=== PATIENT | male | born 1960 | race Caucasian/White ===

== ENCOUNTER 2019-04-22 11:05 | Emergency (ER) | payer MEDICARE, MEDICAID ==
--- NOTE | 2019-04-22 11:56 | EDM.PDOC ---
ED HPI GENERAL MEDICAL PROBLEM - General Chief Complaint: General Stated Complaint: Back pain; abnormal labs Time Seen by Provider: 04/22/19 11:20 Source of Information: Reports: Patient History Limitations: Reports: No Limitations - History of Present Illness INITIAL COMMENTS - FREE TEXT/NARRATIVE: Patient is a 58-year-old with known history of diabetes renal failure came in for evaluation not feeling well diarrhea mostly in the afternoon 24 times back pain at this time labs were drawn in [place] BUN was 65 g creatinine was 9.38 calcium was 7.8 sodium 134 potassium was 5.5 chloride 90 7 repeat creatinine was in the 9.3 range also at this time patient is alert oriented in no acute distress we are concerned because his creatinine is 9.38 I called [facility] is focal with Dr. Nuñez who accepted his transfer we will infuse 1 g IV of calcium and transfer him to [place]. Of interest his labs recently about 2 weeks ago and his creatinine was in the 3- 4 range I do not have the labs with me but his sister who is a director of cath lab told me. Onset: Gradual Duration: Day(s):, Getting Worse Location: Reports: Abdomen Severity: Severe Improves with: Reports: None Worsens with: Reports: None Associated Symptoms: Reports: Weakness, Other (Area) Back Pain Score (Numeric/FACES): 4 - Related Data Allergies Allergy/AdvReac Type Severity Reaction Status Date / Time daptomycin Allergy Rash Verified 04/22/19 11:28 midodrine [Midodrine] Allergy Cannot Verified 04/22/19 11:28 Remember povidone-iodine Allergy Redness Verified 04/22/19 11:28 [From Betadine] soap [From Betadine] Allergy Redness Verified 04/22/19 11:28 vancomycin Allergy Other Verified 04/22/19 11:28 vancomycin causes Red Man Allergy Other Uncoded 04/22/19 11:28 Syndrome Home Meds: Home Meds Calcitriol 0.25 mcg PO DAILY 12/12/14 [History] FLUoxetine HCl [Fluoxetine HCl] 20 mg pe PO DAILY 12/12/14 [History] Insulin Aspart [NovoLOG] 18 units SUBCUT TIDMEALS 12/12/14 [History] Insulin Glarg,Human.Rec.Analog [Lantus Solostar] 52 units SUBCUT BID 12/12/14 [ History] LORazepam 0.5 mg PO BEDTIME 12/12/14 [History] Metoprolol Tartrate [Lopressor] 100 mg PO BID 12/12/14 [History] Omeprazole 20 mg PO DAILY 12/12/14 [History] amLODIPine Besylate [Amlodipine Besylate] 10 mg PO DAILY 12/12/14 [History] Aspirin [Halfprin] 81 mg PO BRK 12/10/15 [History] Cholecalciferol (Vitamin D3) [Vitamin D3] 5,000 unit PO DAILY 04/22/19 [History] Fluticasone Propionate [Flovent HFA 110 MCG] 1 puff INH BID PRN 04/22/19 [ History] Furosemide [Lasix] 40 mg PO BID PRN 04/22/19 [History] Warfarin [Coumadin] 5 mg PO DAILY 04/22/19 [History] atorvaSTATin Calcium [Lipitor] 40 mg PO DAILY 04/22/19 [History] hydrALAZINE [Apresoline] 50 mg PO BID 04/22/19 [History] Past Medical History HEENT History: Reports: Cataract, Impaired Vision, Retinal Detachment Cardiovascular History: Reports: Afib, High Cholesterol, Hypertension, PVD Respiratory History: Reports: None. Denies: COPD, PE, Sleep Apnea, TB Gastrointestinal History: Reports: Gastritis, GERD. Denies: Cholelithiasis, Chronic Constipation, Chronic Diarrhea, Fecal Incontinence, GI Bleed, Hepatitis , Inflammatory Bowel Disease, Pancreatitis, PUD Genitourinary History: Reports: Chronic Renal Insuffiency, Dialysis, Diabetic Nephropathy Musculoskeletal History: Reports: Back Pain, Chronic, Fracture, Osteoarthritis Neurological History: Reports: Concussion (1970), CVA (previous possible dysarthria on 01/12/15 and CVA on 07/20/[address] scans of the head as below but no subsequent MRIs, etc.). Denies: Cerebral Aneurysms, Neuropathy, Diabetic, Neuropathy, Peripheral, Seizure, Vertigo Psychiatric History: Reports: Anxiety, Depression. Denies: Abuse, Victim of, ADD, ADHD, Psych Hospitalization(s), Suicide Attempt, Suicidal Ideation Endocrine/Metabolic History: Reports: Diabetes, Type I, Obesity/BMI 30+, Vitamin D Deficiency Hematologic History: Reports: Anemia, B12 Deficiency, Iron Deficiency Immunologic History: Reports: None. Denies: AIDS, HIV, SLE Oncologic (Cancer) History: Reports: None Dermatologic History: Reports: None. Denies: Eczema, Psoriasis - Infectious Disease History Infectious Disease History: Reports: Chicken Pox, MRSA - Past Surgical History HEENT Surgical History: Reports: Cataract Surgery, Detached Retina, Eye Surgery , Laser Surgery, Oral Surgery Cardiovascular Surgical History: Reports: Vascular Surgery Musculoskeletal Surgical History: Reports: Amputation, Other (See Below) - Past Imaging History Past Imaging History: Reports: Cardiac Echo, Venous Doppler Social & Family History - Living Situation & Occupation Living situation: Reports: Single, with Family Occupation: Disabled ED ROS GENERAL - Review of Systems Review Of Systems: See Below Constitutional: Reports: Weakness HEENT: Reports: No Symptoms, Other (Blurry vision secondary to hyperglycemia) Respiratory: Reports: No Symptoms Cardiovascular: Reports: No Symptoms Endocrine: Reports: High Glucose GI/Abdominal: Reports: Diarrhea : Reports: Other (Urine output has diminished tremendously) Musculoskeletal: Reports: Other (Bilateral lower extremity at the patient) Skin: Reports: No Symptoms Neurological: Reports: No Symptoms Psychiatric: Reports: No Symptoms Hematologic/Lymphatic: Reports: No Symptoms Immunologic: Reports: No Symptoms ED EXAM, GENERAL - Physical Exam Exam: See Below Exam Limited By: No Limitations Ears: Normal External Exam, Normal Canal, Hearing Grossly Normal, Normal TMs Ear Exam: Bilateral Ear: Auricle Normal, Canal Normal, TM normal Nose: Normal Inspection, Normal Mucosa, No Blood Throat/Mouth: Normal Inspection, Normal Lips, Normal Teeth, Normal Gums, Normal Oropharynx, Normal Voice, No Airway Compromise Head: Atraumatic, Normocephalic Neck: Normal Inspection, Supple, Non-Tender, Full Range of Motion Respiratory/Chest: No Respiratory Distress, Lungs Clear Cardiovascular: Regular Rate, Rhythm, No Murmur GI/Abdominal: Normal Bowel Sounds, Other (Diarrhea history) (Male) Exam: Deferred Rectal (Males) Exam: Deferred Back Exam: Paraspinal Tenderness, Vertebral Tenderness Extremities: Limited Range of Motion, Other (Patient(right stump with a posterior early in the summer hasn't been wearing the leg bilateral lower extremity amputation) Neurological: Alert, Oriented, CN II-XII Intact, Normal Cognition Psychiatric: Depressed Mood, Flat Affect Skin Exam: Warm, Dry, Intact Lymphatic: No Adenopathy Course - Vital Signs Last Recorded V/S: Last Vital Signs Temp 98.6 F 04/22/19 11:10 Pulse 80 04/22/19 11:10 Resp 19 04/22/19 11:10 BP 187/74 H 04/22/19 11:10 Pulse Ox 99 04/22/19 11:10 Departure - Departure Time of Disposition: 12:17 Disposition: DC/Tfer to [facility] Preliminary Cause of *Q: Multi System Organ Failure Condition: Poor, Serious Clinical Impression: Acute renal failure, Diabetes mellitus, Hypocalcemia - Discharge Information *PRESCRIPTION DRUG MONITORING PROGRAM REVIEWED*: No *COPY OF PRESCRIPTION DRUG MONITORING REPORT IN PATIENT RANDI: No Referrals: Mukund Bryan MD [Primary Care Provider] - Care Plan Goals: Patient will be treated for hypocalcemia 1-2 g of calcium gluconate IV we started normal saline at 75 ML's per hour and will transfer to [facility] Dr. Dodson. - Problem List & Annotations (1) Chronic hyperkalemia SNOMED Code(s): 37397413 Code(s): E87.5 - HYPERKALEMIA Status: Acute Annotation/Comment:: Start him on 1 g of calcium gluconate and normal saline at 75 ML's per hour (2) IDDM (insulin dependent diabetes mellitus) SNOMED Code(s): 42735333 Code(s): E11.9 - TYPE 2 DIABETES MELLITUS WITHOUT COMPLICATIONS; Z79.4 - TECHNICAL LEAD (CURRENT) USE OF INSULIN Status: Chronic Priority: Medium Annotation/Comment:: Insulin required type 2 diabetes patient is very noncompliant with diet (3) Hyperlipemia SNOMED Code(s): 99428384 Code(s): E78.5 - HYPERLIPIDEMIA, UNSPECIFIED Status: Acute Priority: Medium Annotation/Comment:: Current obesity with compliance with diet encouraged and update of his routine preventative healthcare also discussed Qualifiers: Hyperlipidemia type: unspecified Qualified Code(s): E78.5 - Hyperlipidemia , unspecified (4) Low back pain SNOMED Code(s): 844149442 Code(s): M54.5 - LOW BACK PAIN Status: Acute Priority: Medium Onset Date: 12/10/15 Annotation/Comment:: symptomatic relief Qualifiers: Chronicity: acute Back pain laterality: bilateral Sciatica presence: without sciatica Qualified Code(s): M54.5 - Low back pain - Problem List Review Problem List Initiated/Reviewed/Updated: Yes - Assessment/Plan Admission H&P: Please use this note as an admission H&P Plan: At this time we will treat his hypercalcemia with 1 g of IV calcium gluconate will start him on sodium chloride and transfer him to [facility] Dr. Chen
[2019-04-22] MEDS ORDERED: Calcium Gluconate 1 GM in Sodium Chloride 0.9% 100 ML IV ONE (12:00)
[2019-04-22] MEDS ORDERED: Sodium Chloride 0.9% 10 ML Syringe FLUSH PRN (12:23)
[2019-04-22] MEDS ORDERED: Sodium Chloride 0.9% 1,000 ML IV SCH (12:30)
[2019-04-22 19:34] VITALS: BP 196/80; PULSE 79
== END 2019-04-22 13:15 ==
LOC: LL.ED 11:05
DX: E10.22 Type 1 diabetes mellitus with diabetic chronic kidney disease (principal); I12.0 Hypertensive chronic kidney disease with stage 5 chronic kidney disease or end stage renal disease; N18.6 End stage renal disease; N17.9 Acute kidney failure, unspecified; E83.51 Hypocalcemia; E10.21 Type 1 diabetes mellitus with diabetic nephropathy; F41.9 Anxiety disorder, unspecified; F32.9 Major depressive disorder, single episode, unspecified; Z88.1 Allergy status to other antibiotic agents; Z88.8 Allergy status to other drugs, medicaments and biological substances; Z91.048 Other nonmedicinal substance allergy status; Z79.82 Long term (current) use of aspirin; Z79.899 Other long term (current) drug therapy; Z79.01 Long term (current) use of anticoagulants; Z99.2 Dependence on renal dialysis; Z86.73 Personal history of transient ischemic attack (TIA), and cerebral infarction without residual deficits
CPT/HCPCS: 96360; 96365; 99284-25; J0610; J7030; J7050

== ENCOUNTER 2020-04-08 10:05 | Emergency (ER) | payer MEDICARE, MEDICAID ==
[2020-04-08] MEDS ORDERED: cefTRIAXone 1 GM Vial IM ONE (10:22)
[2020-04-08 10:27] VITALS: BP 170/75; PULSE 87
--- NOTE | 2020-04-08 10:29 | EDM.PDOC ---
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 No fever Onset: Gradual Duration: Day(s): Location: Reports: Upper Extremity, Left Context: Reports: Trauma - Related Data Allergies Allergy/AdvReac Type Severity Reaction Status Date / Time daptomycin Allergy Rash Verified 04/08/20 10:12 povidone-iodine Allergy Redness Verified 04/08/20 10:12 [From Betadine] soap [From Betadine] Allergy Redness Verified 04/08/20 10:12 vancomycin Allergy Other Verified 04/08/20 10:12 vancomycin causes Red Man Allergy Other Uncoded 04/08/20 10:12 Syndrome Home Meds: Home Meds FLUoxetine HCl [Fluoxetine HCl] 20 mg pe PO DAILY 12/12/14 [History] Insulin Aspart [NovoLOG] 18 units SUBCUT TIDMEALS 12/12/14 [History] Insulin Glarg,Human.Rec.Analog [Lantus Solostar] 50 units SUBCUT BID 12/12/14 [History] LORazepam 1 mg PO BID 12/12/14 [History] Metoprolol Tartrate [Lopressor] 50 mg PO BID 12/12/14 [History] Omeprazole 20 mg PO ACBREAKFAST 12/12/14 [History] Aspirin [Halfprin] 81 mg PO DAILY 12/10/15 [History] Fluticasone Propionate [Flovent HFA 110 MCG] 1 puff INH BID PRN 04/22/19 [History] Furosemide [Lasix] 40 mg PO BID PRN 04/22/19 [History] Warfarin [Coumadin] 5 mg PO SUTUTHSA 04/22/19 [History] atorvaSTATin Calcium [Lipitor] 40 mg PO DAILY 04/22/19 [History] Warfarin [Coumadin] 7.5 mg PO MOWEFR 04/08/20 [History] Past Medical History HEENT History: Reports: Cataract, Impaired Vision, Retinal Detachment Cardiovascular History: Reports: Afib, High Cholesterol, Hypertension, PVD Respiratory History: Reports: None Gastrointestinal History: Reports: Gastritis, GERD Genitourinary History: Reports: Chronic Renal Insuffiency, Dialysis, Diabetic Nephropathy Musculoskeletal History: Reports: Back Pain, Chronic, Fracture, Osteoarthritis Neurological History: Reports: Concussion, CVA Psychiatric History: Reports: Anxiety, Depression Endocrine/Metabolic History: Reports: Diabetes, Type I, Obesity/BMI 30+, Vitamin D Deficiency Hematologic History: Reports: Anemia, B12 Deficiency, Iron Deficiency Immunologic History: Reports: None Oncologic (Cancer) History: Reports: None Dermatologic History: Reports: None - Infectious Disease History Infectious Disease History: Reports: Chicken Pox, MRSA - Past Surgical History Head Surgeries/Procedures: Reports: None HEENT Surgical History: Reports: Cataract Surgery, Detached Retina, Eye Surgery, Laser Surgery, Oral Surgery Cardiovascular Surgical History: Reports: Vascular Surgery Musculoskeletal Surgical History: Reports: Amputation, Other (See Below) - Past Imaging History Past Imaging History: Reports: Cardiac Echo, Venous Doppler Social & Family History - Living Situation & Occupation Living situation: Reports: Single, with Family Occupation: Disabled ED ROS GENERAL - Review of Systems Review Of Systems: See Below Skin: Reports: Change in Color ED EXAM, SKIN/RASH Exam: See Below Exam Limited By: No Limitations Skin: Other (Tip of left thumb with 1 cm burn area Faint erythema on thumb and hand No open areas Slightly warm to touch) Course - Orders/Labs/Meds Meds: Medications Discontinued Medications Generic Name Dose Route Start Last Admin Trade Name Freq PRN Reason Stop Dose Admin Ceftriaxone Sodium 1 gm 04/08/20 10:22 Rocephin IM 04/08/20 10:23 ONETIME ONE - Re-Assessments/Exams Free Text/Narrative Re-Assessment/Exam: 04/08/20 10:27 Pt given Rocephin 1 gm IM and Rx for Cipro 500 mg a day after dialysis Departure - Departure Time of Disposition: 10:30 Disposition: Home, Self-Care 01 Clinical Impression: Burn Cellulitis Qualifiers: Site of cellulitis: extremity Site of cellulitis of extremity: upper extremity Laterality: left Qualified Code(s): L03.114 - Cellulitis of left upper limb - Discharge Information *PRESCRIPTION DRUG MONITORING PROGRAM REVIEWED*: Not Applicable *COPY OF PRESCRIPTION DRUG MONITORING REPORT IN PATIENT RANDI: Not Applicable Instructions: Cellulitis, Adult Referrals: Claudia Andrews NP [Primary Care Provider] - Additional Instructions: Follow up in clinic in 24 to 48 hours
== END 2020-04-08 10:55 | disposition home or self-care (01) ==
LOC: LL.ED 10:05
DX: T23.112A Burn of first degree of left thumb (nail), initial encounter (principal); L03.114 Cellulitis of left upper limb; I48.91 Unspecified atrial fibrillation; E78.00 Pure hypercholesterolemia, unspecified; E10.51 Type 1 diabetes mellitus with diabetic peripheral angiopathy without gangrene; E66.9 Obesity, unspecified; K21.9 Gastro-esophageal reflux disease without esophagitis; I12.9 Hypertensive chronic kidney disease with stage 1 through stage 4 chronic kidney disease, or unspecified chronic kidney disease; N18.9 Chronic kidney disease, unspecified; E10.21 Type 1 diabetes mellitus with diabetic nephropathy; F41.9 Anxiety disorder, unspecified; F32.9 Major depressive disorder, single episode, unspecified; M19.90 Unspecified osteoarthritis, unspecified site; Z79.82 Long term (current) use of aspirin; Z86.73 Personal history of transient ischemic attack (TIA), and cerebral infarction without residual deficits; Z79.01 Long term (current) use of anticoagulants; Z79.899 Other long term (current) drug therapy; Z88.1 Allergy status to other antibiotic agents; Z91.048 Other nonmedicinal substance allergy status
CPT/HCPCS: 96372; 99283; J0696; J2001

== ENCOUNTER 2020-05-31 17:08 | Emergency (ER) | payer MEDICARE, MEDICAID ==
[2020-05-31] MEDS ORDERED: Sodium Chloride 0.9% 10 ML Syringe FLUSH PRN (17:20)
[2020-05-31 18:09] LABS: PTT,PARTIAL THROMBOPLSTIN TIME 43.6 SEC (24.5-32.8)
[2020-05-31 18:21] LABS: CHLORIDE,CL 99 mmol/L (98-107); SODIUM,NA 135 mmol/L (136-145)
[2020-05-31 18:31] VITALS: BP 154/74; PULSE 69
--- NOTE | 2020-05-31 18:48 | EDM.PDOC ---
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 [OM.PC] Urgent Peripheral IV Insertion Adult [OM.PC] Stat 05/31/20 18:17 EKG Documentation Completion [RC] ASDIRECTED Assessment:: As above Plan: As above. Extensive precautions were given to the patient and his sister, who are in agreement with the treatment plan. See Patient Instructions for further treatment and plan.
== END 2020-05-31 19:10 | disposition home or self-care (01) ==
LOC: LL.ED 17:08
DX: I13.0 Hypertensive heart and chronic kidney disease with heart failure and stage 1 through stage 4 chronic kidney disease, or unspecified chronic kidney disease (principal); I50.9 Heart failure, unspecified; N18.9 Chronic kidney disease, unspecified; M15.0 Primary generalized (osteo)arthritis; E10.21 Type 1 diabetes mellitus with diabetic nephropathy; Z71.6 Tobacco abuse counseling; F17.210 Nicotine dependence, cigarettes, uncomplicated; I45.10 Unspecified right bundle-branch block; I49.1 Atrial premature depolarization; E88.09 Other disorders of plasma-protein metabolism, not elsewhere classified; E87.1 Hypo-osmolality and hyponatremia; E10.51 Type 1 diabetes mellitus with diabetic peripheral angiopathy without gangrene; K21.9 Gastro-esophageal reflux disease without esophagitis; I48.91 Unspecified atrial fibrillation; E78.00 Pure hypercholesterolemia, unspecified; F41.9 Anxiety disorder, unspecified; F32.9 Major depressive disorder, single episode, unspecified; Z99.2 Dependence on renal dialysis; Z86.718 Personal history of other venous thrombosis and embolism; M10.9 Gout, unspecified; E10.40 Type 1 diabetes mellitus with diabetic neuropathy, unspecified; Z88.1 Allergy status to other antibiotic agents; Z91.048 Other nonmedicinal substance allergy status; Z79.82 Long term (current) use of aspirin; Z79.01 Long term (current) use of anticoagulants; Z79.899 Other long term (current) drug therapy
CPT/HCPCS: 36415; 71045; 80053; 82550; 82553; 83605; 83735; 83880; 84443; 84484; 84550; 85025; 85379; 85610; 85730; 93005; 99284-25

== ENCOUNTER 2021-11-03 22:27 | Emergency (ER) | payer MEDICARE, MEDICAID ==
[2021-11-03] MEDS ORDERED: Sodium Chloride 0.9% 10 ML Syringe FLUSH PRN (22:36)
[2021-11-03 22:48] VITALS: PULSE 105
[2021-11-03] MEDS ORDERED: Cefepime 2 GM Vial IVPUSH ONE (22:51)
[2021-11-03] MEDS ORDERED: VANCOmycin 2 GM/400 ML 2 GM in Premix Bag 1 BAG IV ONE (22:53)
[2021-11-03 23:30] LABS: ANION GAP 17.9 meq/L (7-15)
[2021-11-04] MEDS ORDERED: diphenhydrAMINE 50 MG/ML SDV IVPUSH ONE (00:26)
[2021-11-04 03:25] VITALS: BP 135/69
== END 2021-11-04 03:00 ==
LOC: LL.ED 22:27
DX: L03.012 Cellulitis of left finger (principal); I48.91 Unspecified atrial fibrillation; E78.00 Pure hypercholesterolemia, unspecified; K21.9 Gastro-esophageal reflux disease without esophagitis; N40.0 Benign prostatic hyperplasia without lower urinary tract symptoms; Z86.73 Personal history of transient ischemic attack (TIA), and cerebral infarction without residual deficits; Z88.1 Allergy status to other antibiotic agents; Z88.8 Allergy status to other drugs, medicaments and biological substances; Z79.4 Long term (current) use of insulin; Z79.82 Long term (current) use of aspirin; Z79.899 Other long term (current) drug therapy
CPT/HCPCS: 36415; 80053; 83605; 84145; 85025; 86140; 87040; 96365; 96366; 96375; 99283; 99284-25; J0692; J1200; J3370

== ENCOUNTER 2022-04-10 14:14 | Emergency (ER) | payer MEDICARE, MEDICAID ==
[2022-04-10 15:12] LABS: CHLORIDE,CL 95 mmol/L (98-107); SODIUM,NA 132 mmol/L (136-145)
[2022-04-10 15:18] LABS: ANION GAP 12.6 meq/L (7-15); ESTIMATED GFR 18 mL/min (>=60)
[2022-04-10] MEDS ORDERED: Cefepime 1 GM Vial IVPUSH ONE (17:08)
[2022-04-10] MEDS ORDERED: diphenhydrAMINE 50 MG/ML SDV IVPUSH ONE (17:15)
[2022-04-10] MEDS ORDERED: Cefepime 2 GM Vial IVPUSH ONE (17:15)
[2022-04-10] MEDS ORDERED: methylPREDNISolone Sodium Succinate 125 MG/2 ML SDV IVPUSH ONE (17:15)
[2022-04-10] MEDS ORDERED: VANCOmycin 2 GM/400 ML 2 GM in Premix Bag 1 BAG IV ONE (17:15)
[2022-04-10 18:49] VITALS: BP 105/42; PULSE 72
== END 2022-04-10 20:10 | disposition home or self-care (01) ==
LOC: LL.ED 14:14
DX: M86.9 Osteomyelitis, unspecified (principal); E10.319 Type 1 diabetes mellitus with unspecified diabetic retinopathy without macular edema; E10.22 Type 1 diabetes mellitus with diabetic chronic kidney disease; I12.9 Hypertensive chronic kidney disease with stage 1 through stage 4 chronic kidney disease, or unspecified chronic kidney disease; N18.9 Chronic kidney disease, unspecified; D63.1 Anemia in chronic kidney disease; I48.91 Unspecified atrial fibrillation; E78.00 Pure hypercholesterolemia, unspecified; M19.90 Unspecified osteoarthritis, unspecified site; K21.9 Gastro-esophageal reflux disease without esophagitis; F41.9 Anxiety disorder, unspecified; F32.A Depression, unspecified; Z79.899 Other long term (current) drug therapy; Z86.718 Personal history of other venous thrombosis and embolism; Z79.82 Long term (current) use of aspirin; Z88.1 Allergy status to other antibiotic agents; Z91.048 Other nonmedicinal substance allergy status; Z88.8 Allergy status to other drugs, medicaments and biological substances
CPT/HCPCS: 36415; 73130-LT; 80053; 83605; 85025; 86140; 87040; 96365; 96366; 96375; 99283-25; J0692; J1200; J2930; J3370